=== PATIENT | female | born 1970 | race Caucasian/White ===

== ENCOUNTER 2016-10-24 20:56 | Emergency (ER) | payer OTHER ==
[~2016-10-24] VITALS: Ht 162.6 cm; Wt 91.5 kg
[~2016-10-24 20:56] MED LIST: DICY10CA60 PO; GABA600T PO; IBUP-1542 PO; RANI150T9 PO; SUMA50TA11; TRAM50TA2 PO
[2016-10-24 21:03] VITALS: Ht 162.6 cm; Wt 91.5 kg
[2016-10-24] MEDS ORDERED: ONDANSETRON (ODT) 4 MG TAB ODT STA (22:56)
[2016-10-24] MEDS ORDERED: IBUP-1542 PO (23:54)
[2016-10-24] MEDS ORDERED: ONDA4TAB8 PO (23:54)
[2016-10-24] MEDS ORDERED: ELEC100080 PO (23:55)
[2016-10-24] MEDS ORDERED: ACET500C5 PO (23:55)
--- NOTE | 2016-10-25 00:04 | ERD ---
ER Documentation Chief Complaint Date/Time DATE: 10/24/16 TIME: 23:59 Chief Complaint vomiting, diarrhea, body aches x 4 days HPI This 42-year-old female presents to the emergency department today complaining of vomiting and diarrhea and body aches for the past 4 days. Patient states that she has used Imodium which helped but then she started having diarrhea again. States she is also had intermittent fevers. Denies taking any medication for her fevers. Denies any cough, sore throat. ROS All systems reviewed and are negative except as per history of present illness. Medications Home Meds Active Scripts Electrolyte,Oral (Pedialyte) 1,000 Ml Solution, 100 ML PO Q6 Y for DIARRHEA, # 1000 ML Prov:LUCRECIA GONZÁLES PA-C 10/24/16 Acetaminophen* (Tylophen*) 500 Mg Capsule, 1 CAP PO Q6H Y for PAIN AND OR ELEVATED TEMP, #30 CAP Prov:LUCRECIA GONZÁLES PA-C 10/24/16 Ibuprofen* (Motrin*) 600 Mg Tab, 600 MG PO Q6, #30 TAB Prov:LUCRECIA GONZÁLES PA-C 10/24/16 Ondansetron Hcl* (Zofran*) 4 Mg Tablet, 4 MG PO Q6H for NAUSEA AND/OR VOMITING, #30 TAB Prov:LUCRECIA GONZÁLES PA-C 10/24/16 Ibuprofen* (Motrin*) 600 Mg Tab, 600 MG PO Q6, #20 TAB Prov:CALEB SUBRAMANIAN MD 02/21/16 Tramadol HCl (Tramadol HCl) 50 Mg Tablet, 50 MG PO Q4 Y for PAIN, #20 TAB Prov:CALEB SUBRAMANIAN MD 02/21/16 Tramadol HCl (Tramadol HCl) 50 Mg Tablet, 50 MG PO Q4 Y for PAIN, #20 TAB Prov:RIANNA CHARLES PA-C 11/12/15 Dicyclomine Hcl* (Bentyl*) 10 Mg Capsule, 10 MG PO QID for 3 Days, CAP Prov:HUA LIND 09/10/15 Ranitidine Hcl* (Zantac*) 150 Mg Tablet, 150 MG PO BID Y for PAIN, #30 TAB Prov:HUA LIND 09/10/15 Reported Medications Sumatriptan Succinate* (Imitrex*) 50 Mg Tablet, Y 11/24/10 Gabapentin* (Neurontin*) 600 Mg Tablet, PO HS 11/24/10 Allergies Allergies: Coded Allergies: No Known Drug Allergies (Verified Allergy, Mild, 02/21/16) PMhx/Soc Medical and Surgical Hx: pt denies Medical Hx History of Surgery: Yes (gallbladder removal 2010, tubal ligation) Anesthesia Reaction: No Hx Neurological Disorder: No Hx Respiratory Disorders: No Hx Cardiac Disorders: No Hx Psychiatric Problems: No Hx Miscellaneous Medical Probl: No Hx Alcohol Use: Yes (SOCIALLY) Hx Substance Use: No Hx Tobacco Use: No Smoking Status: Never smoker Physical Exam Vitals Vital Signs Date Time Temp Pulse Resp B/P Pulse Ox O2 Delivery O2 Flow Rate FiO2 10/24/16 21:03 98.1 82 20 141/65 100 Physical Exam Const: No acute distress Head: Atraumatic Eyes: Normal Conjunctiva ENT: Normal External Ears, Nose and Mouth. Neck: Full range of motion..~ No meningismus. Resp: Clear to auscultation bilaterally. No absent breath sounds. No wheezing Cardio: Regular rate and rhythm, no murmurs Abd: Soft, non tender, non distended. Normal bowel sounds Skin: No petechiae or rashes Neur: Awake and alert Psych: Normal Mood and Affect Results 24 hrs Current Medications Medications (Trade) Dose Ordered Sig/Misha Route PRN Reason Start Time Stop Time Status Last Admin Dose Admin Ondansetron HCl (Zofran Odt) 4 mg ONCE STAT ODT 10/24/16 22:56 10/24/16 22:58 DC 10/24/16 23:03 Procedures/MDM This a 45-year-old female who presents to the emergency department today with vomiting and diarrhea versus influenza-like symptoms. Patient is afebrile and otherwise well-appearing. Her oxygen saturations 100%. She denied any abdominal pain. Low suspicion for acute surgical abdomen. I have low suspicion for strep pharyngitis, peritonsillar abscess, retropharyngeal abscess, otitis media, PNA, sinusitis, abscess, meningitis, sepsis, or other acute infectious bacterial process. She was given Zofran here in the emergency department. When I went to check on her she was eating chips in the waiting room. Patient reported she was feeling much better. Patient was given a prescription for Zofran, Tylenol, Motrin and Pedialyte. She had indicated that she had used Imodium I told her that she could use it but only as necessary. Patient understood At this time the patient is stable for discharge and outpatient management. Patient should follow up with their PCP in the next 1-2 days. They may return to the emergency department sooner for any persistent or worsening of symptoms. Patient understood and agreed with the plan. Departure Diagnosis: Primary Impression: Multiple complaints Condition: Fair Patient Instructions: Self-Care for Vomiting and Diarrhea, Influenza (Adult) Additional Instructions: Call your primary care doctor TOMORROW for an appointment during the next 1-2 days.See the doctor sooner or return here if your condition worsens before your appointment time. Take Zofran for nausea or vomiting Take Motrin or Tylenol for pain Take Pedialyte for vomiting or diarrhea and stay well-hydrated Use the Imodium you have only as needed for diarrhea LUCRECIA GONZÁLES PA-C October 25, 2016 00:04
[2016-10-25 00:52] VITALS: BP 143/82; PULSE 70; RESP 18
== END 2016-10-25 00:53 | disposition home or self-care (01) ==
LOC: FTE 20:56
DX: R11.10 Vomiting, unspecified (principal); R19.7 Diarrhea, unspecified; R50.9 Fever, unspecified
CPT/HCPCS: 99283

== ENCOUNTER 2017-08-24 18:16 | Emergency (ER) | END 2017-08-24 20:37 | disposition home or self-care (01) ==

== ENCOUNTER 2018-02-21 11:21 | Emergency (ER) | END 2018-02-21 13:53 | disposition home or self-care (01) ==

== ENCOUNTER 2019-03-11 15:07 | Emergency (ER) | payer OTHER ==
[~2019-03-11] VITALS: Wt 93.5 kg
[~2019-03-11 15:07] MED LIST changes: +ACET500C5 PO; +BUTA1CAP38 PO; +DICY10CA40 PO; -DICY10CA60 PO; +ELEC100080 PO; +HYDR-4011 PO; +LORA1TAB PO; +ONDA4TAB8 PO; +RANI-535 PO; -RANI150T9 PO; -SUMA50TA11; +SUMA50TA2
[2019-03-11 15:18] VITALS: BP 130/81; PULSE 80; RESP 20
[2019-03-11] MEDS ORDERED: ONDANSETRON (ODT) 4 MG TAB ODT STA (16:14)
[2019-03-11] MEDS ORDERED: HYDROCODONE/APAP (5/325) TAB PO ONE (16:30)
== END 2019-03-11 16:45 | disposition home or self-care (01) ==
LOC: FTE 15:07
DX: R51 Headache (principal); I10 Essential (primary) hypertension; Z87.891 Personal history of nicotine dependence
CPT/HCPCS: 81003; 81025; Z7502; Z7610; 99283